=== PATIENT | female | born 1950 | race Caucasian/White ===

== ENCOUNTER 2020-09-05 10:39 | Emergency (ER) | payer MEDICARE ==
[~2020-09-05] VITALS: Ht 165.1 cm; Wt 81.8 kg
[2020-09-05 12:41] LABS: BILIRUBIN,URINE NEGATIVE (NEG); CLARITY,URINE CLEAR; COLOR,URINE YELLOW; NITRITE,URINE NEGATIVE (NEG); PROTEIN,URINE NEGATIVE (NEG-TRACE); UROBILINOGEN,URINE 0.2 mg/dL (0.2 mg/dL)
[2020-09-05 13:02] LABS: HYALINE CASTS, URINE OCCASIONAL /HPF
[2020-09-05 13:03] LABS: BACTERIA,URINE FEW /HPF (0-FEW); RBC,URINE 0 /HPF (0-2)
[2020-09-05 13:19] LABS: BASO % 0 % (0-3); EOS % 0 % (0-3); HEMATOCRIT 39.9 % (36.0-47.0); HEMOGLOBIN 13.3 g/dL (12.0-15.5); LYMPH # 0.8 x10^3/uL (1.0-4.8); LYMPH % 6 % (24-48); MEAN CORPUSCULAR HEMOGLOBIN 28 pg (25-35); MEAN CORPUSCULAR HGB CONC 33 g/dL (31-37); MEAN CORPUSCULAR VOLUME 85 fL (79-100); MONO # 0.4 x10^3/uL (0.0-1.1); MONO % 4 % (0-9); NEUT # 10.9 x10^3/uL (1.8-7.7); NEUT % 90 % (31-73); PLATELET COUNT 388 x10^3/uL (140-400); RED BLOOD COUNT 4.69 x10^6/uL (3.50-5.40); RED CELL DISTRIBUTION WIDTH 13.7 % (11.5-14.5); WHITE BLOOD COUNT 12.1 x10^3/uL (4.0-11.0)
[2020-09-05 13:28] LABS: CALCIUM 9.8 mg/dL (8.5-10.1); CREATININE 1.3 mg/dL (0.6-1.0); GFR 40.3; POTASSIUM 4.2 mmol/L (3.5-5.1)
[2020-09-05 13:34] LABS: ALBUMIN 3.2 g/dL (3.4-5.0); ALBUMIN/GLOBULIN RATIO 0.7 (1.0-1.7); TOTAL BILIRUBIN 0.4 mg/dL (0.2-1.0)
[2020-09-05 13:54] VITALS: BP 114/73
--- NOTE | 2020-09-05 14:22 | RAD ---
CT abdomen and pelvis without contrast 09/05/2020. Reason for exam: Pelvic pain. Helical noncontrast images were performed through the abdomen and pelvis. Exposure: One or more of th e following individualized dose reduction techniques were utilized for this examination: 1. Automate d exposure control 2. Adjustment of the mA and/or kV according to patient size 3. Use of iterative reconstruction technique. There are no available comparison studies. FINDINGS: The lung bases are clear. The liver shows some cysts. No significant liver parenchymal abno rmality is seen. The liver and spleen otherwise appear normal. Evaluation of the solid organs is limi felicita without IV contrast. The kidneys show no mass. There is moderate right-sided hydronephrosis witho ut apparent ureteral dilatation. This may be from congenital UPJ obstruction, although there is some perinephric edema on the right, not seen on the left. The adrenal glands are not enlarged. The pancre as appears normal. No retroperitoneal or mesenteric adenopathy is seen. There is no apparent abdomina l soft tissue mass or other inflammatory process. A normal appendix is seen arising from the cecum. T here is a fat-containing umbilical hernia and a small hiatal hernia at the lower mediastinum. Images through the pelvis show no abnormality of the distal ureters. The bladder has some indentation from the left but otherwise appears normal. No pelvic or inguinal adenopathy is seen. There is no se parate pelvic mass. There is fairly extensive diverticulosis of the sigmoid colon. There is wall thic kening of the colon was somewhat adjacent edema. No extraluminal fluid or gas collection is seen. IMPRESSION: Findings suggest acute diverticulitis of the sigmoid colon. No perforation, abscess or ot her complication is seen at this point. There is some right-sided hydronephrosis. This could be related to congenital UPJ obstruction, althou gh there seems to be some perinephric edema on the right, which would not typically be seen with a ch ronic process. However, no obstructing stone or mass is seen Electronically signed by: Mao Mackay Jr., MD (09/05/2020 2:19 PM) [id number]
--- NOTE | 2020-09-05 14:36 | ED.ADGEN ---
Past Medical History Past Medical History: Hypertension, Hypothyroid, Other Additional Past Medical Histor: PSORASIS, Seasonal allergies Past Surgical History: Hysterectomy Smoking Status: Never Smoker Alcohol Use: None General Adult EDM: Chief Complaint: PELVIC PAIN HPI: HPI: Patient is a 70 year old female, who presents emergency department with complaints of lower left quadrant, and left-sided pelvic for the last 2 weeks. She denies any dysuria, hematuria, increased urinary frequency, or difficulty voiding. Patient states for several months she is also felt like something is not right with her vagina. She states that she has a weak pelvic floor. She denies any bleeding or abnormal discharge from her vagina, she reports it feels like something wants to come out of her vagina. She reports that does not burn to PE however she feels increased pain in her pelvis when she urinates. She denies any fever, cough, sore throat, body aches, fatigue, chest pain, patient's, or weakness. She denies any nausea, vomiting, diarrhea, or recent constipation. Patient reports that she has had a 15 pound unintentional weight loss in the last 3 months, she reports a decreased appetite and thinks the weight loss is due to the lack of appetite. She currently rates her discomfort a 6 out of 10 on pain scale, she states that the pain is worse when she is sitting, pain decreases when she lies flat. Review of Systems: Review of Systems: Complete ROS is negative unless otherwise noted in HPI. Allergies: Allergies: Allergies Coded Allergies Type Severity Reaction Last Updated Verified Cephalosporins Allergy Intermediate Hives 09/05/20 Yes Penicillins Allergy Intermediate Hives 09/05/20 Yes Sulfa (Sulfonamide Antibiotics) Allergy Intermediate Hives 09/05/20 Yes Physical Exam: PE: See Above Constitutional: Well developed, well nourished, no acute distress, non-toxic appearance. [] HENT: Normocephalic, atraumatic, bilateral external ears normal, nose normal. [] Eyes: PERRLA, EOMI, conjunctiva normal, no discharge. [] Neck: Normal range of motion, no stridor. [] Cardiovascular:Heart rate regular rhythm Lungs & Thorax: Respirations even and unlabored, no retractions, no respiratory distress Abdomen: soft, lower left quadrant tenderness to palpation, no rebound tenderness, no guarding, no palpable mass Female : Bulging tissue present in the vaginal apex at the posterior wall of the vaginal canal, concerning for rectal prolapse, no bleeding Skin: Warm, dry, no erythema, no rash. [] Extremities: No cyanosis, ROM intact, no edema. [] Neurologic: Alert and oriented X 3, no focal deficits noted. [] Psychologic: Affect normal, judgement normal, mood normal. [] Current Patient Data: Labs: Laboratory Tests Test 09/05/20 12:25 09/05/20 13:05 Urine Collection Type Unknown Urine Color Yellow Urine Clarity Clear Urine pH 6.0 (<5.0-8.0) Urine Specific [place] 1.010 (1.000-1.030) Urine Protein Negative mg/dL (NEG-TRACE) Urine Glucose (UA) Negative mg/dL (NEG) Urine Ketones (Stick) Negative mg/dL (NEG) Urine Blood Negative (NEG) Urine Nitrite Negative (NEG) Urine Bilirubin Negative (NEG) Urine Urobilinogen Dipstick 0.2 mg/dL (0.2 mg/dL) Urine Leukocyte Esterase Trace (NEG) Urine RBC 0 /HPF (0-2) Urine WBC 1-4 /HPF (0-4) Urine Squamous Epithelial Cells Occ /LPF Urine Transitional Epithelial Cells Occ /LPF Urine Bacteria Few /HPF (0-FEW) Urine Hyaline Casts Occasional /HPF White Blood Count 12.1 x10^3/uL (4.0-11.0) H Red Blood Count 4.69 x10^6/uL (3.50-5.40) Hemoglobin 13.3 g/dL (12.0-15.5) Hematocrit 39.9 % (36.0-47.0) Mean Corpuscular Volume 85 fL (79-100) Mean Corpuscular Hemoglobin 28 pg (25-35) Mean Corpuscular Hemoglobin Concent 33 g/dL (31-37) Red Cell Distribution Width 13.7 % (11.5-14.5) Platelet Count 388 x10^3/uL (140-400) Neutrophils (%) (Auto) 90 % (31-73) H Lymphocytes (%) (Auto) 6 % (24-48) L Monocytes (%) (Auto) 4 % (0-9) Eosinophils (%) (Auto) 0 % (0-3) Basophils (%) (Auto) 0 % (0-3) Neutrophils # (Auto) 10.9 x10^3/uL (1.8-7.7) H Lymphocytes # (Auto) 0.8 x10^3/uL (1.0-4.8) L Monocytes # (Auto) 0.4 x10^3/uL (0.0-1.1) Eosinophils # (Auto) 0.0 x10^3/uL (0.0-0.7) Basophils # (Auto) 0.0 x10^3/uL (0.0-0.2) Segmented Neutrophils % 88 % (35-66) H Lymphocytes % 11 % (24-48) L Monocytes % 1 % (0-10) Platelet Estimate Adequate (ADEQUATE) Sodium Level 140 mmol/L (136-145) Potassium Level 4.2 mmol/L (3.5-5.1) Chloride Level 104 mmol/L (98-107) Carbon Dioxide Level 23 mmol/L (21-32) Anion Gap 13 (6-14) Blood Urea Nitrogen 17 mg/dL (7-20) Creatinine 1.3 mg/dL (0.6-1.0) H Estimated GFR (Cockcroft-Gault) 40.3 BUN/Creatinine Ratio 13 (6-20) Glucose Level 111 mg/dL (70-99) H Calcium Level 9.8 mg/dL (8.5-10.1) Total Bilirubin 0.4 mg/dL (0.2-1.0) Aspartate Amino Transferase (AST) 17 U/L (15-37) Alanine Aminotransferase (ALT) 20 U/L (14-59) Alkaline Phosphatase 80 U/L (46-116) Total Protein 8.0 g/dL (6.4-8.2) Albumin 3.2 g/dL (3.4-5.0) L Albumin/Globulin Ratio 0.7 (1.0-1.7) L Laboratory Tests 09/05/20 13:05 Laboratory Tests 09/05/20 13:05 Vital Signs: Vital Signs Date Time Temp Pulse Resp B/P (MAP) Pulse Ox O2 Delivery O2 Flow Rate FiO2 09/05/20 13:54 78 96 09/05/20 12:15 98.6 15 136/83 (100) Room Air 98.6 EKG: EKG: [] Heart Score: Risk Factors: Risk Factors: DM, Current or recent (<one month) smoker, HTN, HLP, family history of CAD, obesity. Risk Scores: Score 0 - 3: 2.5% MACE over next 6 weeks - Discharge Home Score 4 - 6: 20.3% MACE over next 6 weeks - Admit for Clinical Observation Score 7 - 10: 72.7% MACE over next 6 weeks - Early Invasive Strategies Radiology/Procedures: Radiology/Procedures: PROCEDURE: CT ABDOMEN PELVIS WO CONTRAST CT abdomen and pelvis without contrast 09/05/2020. Reason for exam: Pelvic pain. Helical noncontrast images were performed through the abdomen and pelvis. Exposure: One or more of the following individualized dose reduction techniques were utilized for this examination: 1. Automated exposure control 2. Adjustment of the mA and/or kV according to patient size 3. Use of iterative reconstruction technique. There are no available comparison studies. FINDINGS: The lung bases are clear. The liver shows some cysts. No significant liver parenchymal abnormality is seen. The liver and spleen otherwise appear normal. Evaluation of the solid organs is limited without IV contrast. The kidneys show no mass. There is moderate right-sided hydronephrosis without apparent ureteral dilatation. This may be from congenital UPJ obstruction, although there is some perinephric edema on the right, not seen on the left. The adrenal glands are not enlarged. The pancreas appears normal. No retroperitoneal or mesenteric adenopathy is seen. There is no apparent abdominal soft tissue mass or other inflammatory process. A normal appendix is seen arising from the cecum. There is a fat-containing umbilical hernia and a small hiatal hernia at the lower mediastinum. Images through the pelvis show no abnormality of the distal ureters. The bladder has some indentation from the left but otherwise appears normal. No pelvic or inguinal adenopathy is seen. There is no separate pelvic mass. There is fairly extensive diverticulosis of the sigmoid colon. There is wall thickening of the colon was somewhat adjacent edema. No extraluminal fluid or gas collection is seen. IMPRESSION: Findings suggest acute diverticulitis of the sigmoid colon. No perforation, abscess or other complication is seen at this point. There is some right-sided hydronephrosis. This could be related to congenital UPJ obstruction, although there seems to be some perinephric edema on the right, which would not typically be seen with a chronic process. However, no obstructing stone or mass is seen Electronically signed by: Mao Mackay Jr., MD (09/05/2020 2:19 PM) [id number] [] Course & Med Decision Making: Course & Med Decision Making Pertinent Labs and Imaging studies reviewed. (See chart for details) [] Dori Disclaimer: Dori Disclaimer: This electronic medical record was generated, in whole or in part, using a voice recognition dictation system. Departure Departure Impression: Primary Impression: Acute diverticulitis Additional Impression: Partial rectal prolapse Disposition: ADMITTED INPT THIS HOSP Admitting Physician: BRYANT Salamanca) Condition: STABLE Referrals: MERLIN LEAHY MD Patient Instructions: Diverticulitis, [id number], Prolapse Additional Instructions: Fill the prescriptions, use them as directed. Recommend clear liquid diet for the next [address] Leahy for further evaluation of the possible rectal prolapse. Recommend that you follow-up with your primary care, Dr. Diaz next week, call Monday for an appointment. Return to the ER if symptoms worsen or you develop a fever. Scripts Hydrocodone Bit/Acetaminophen (HYDROCODONE-APAP 5-325 ) 1 Tab Tablet 0.5-1 TAB PO PRN Q6HRS PRN for SEVERE PAIN 7-10 for 5 Days, #10 TAB 0 Refills Prov: ALBERTO HANNA ENGINEERING ASSOCIATE 09/05/20 Metronidazole (FLAGYL) 500 Mg Tablet 500 MG PO TID for 10 Days, #30 TAB 0 Refills Prov: ALBERTO HANNA ENGINEERING ASSOCIATE 09/05/20 Ciprofloxacin Hcl (CIPRO) 500 Mg Tablet 1 TAB PO BID for 10 Days, #20 TAB 0 Refills Prov: ALBERTO HANNA ENGINEERING ASSOCIATE 09/05/20 Problem Qualifiers ALBERTO HANNA ENGINEERING ASSOCIATE Sep 05, 2020 14:36
[2020-09-05 14:43] LABS: % LYMPHS 11 % (24-48); % MONOS 1 % (0-10); % SEGS 88 % (35-66); PLT ESTIMATE ADEQUATE (ADEQUATE)
[2020-09-05] MEDS ORDERED: METR500T PO (15:37)
[2020-09-05] MEDS ORDERED: HYDR-2761 PO (15:37)
[2020-09-05] MEDS ORDERED: CIPR500T94 PO (15:37)
[2020-10-29] MEDS ORDERED: LACT1CAP21 PO (16:36)
[2020-10-29] MEDS ORDERED: vitamin d3 PO (16:36)
[2020-10-29] MEDS ORDERED: LEVO125T5 PO (16:36)
[2020-10-29] MEDS ORDERED: FLUT9.9S NS (16:36)
[2020-11-06] MEDS ORDERED: ERTA1VIA16 IJ (13:11)
[2020-11-06] MEDS ORDERED: PANT40TA77 PO (13:11)
== END 2020-09-05 16:38 | disposition home or self-care (01) ==
LOC: ER 10:39
DX: K57.92 Diverticulitis of intestine, part unspecified, without perforation or abscess without bleeding (principal); K62.3 Rectal prolapse; I10 Essential (primary) hypertension; E03.9 Hypothyroidism, unspecified; Z90.710 Acquired absence of both cervix and uterus; Z88.0 Allergy status to penicillin; Z88.1 Allergy status to other antibiotic agents; Z88.2 Allergy status to sulfonamides
CPT/HCPCS: 36415; 74176; 80053; 81001; 85007; 85025; 87086; 99284-25; 99285-25

== ENCOUNTER 2020-11-17 19:00 | Emergency (ER) | payer MEDICARE ==
[~2020-11-17] VITALS: Ht 165.1 cm; Wt 75.1 kg
[~2020-11-17 19:00] MED LIST: CIPR500T94 PO; ERTA1VIA16 IJ; FLUT9.9S NS; HYDR-2761 PO; LACT1CAP21 PO; LEVO125T5 PO; METR500T PO; PANT40TA77 PO; vitamin d3 PO
[2020-11-17] MEDS ORDERED: IV NORMAL SALINE 1000ML BAG 1,000 ML IV SCH (20:00)
--- NOTE | 2020-11-17 20:30 | RAD ---
Exam: CT head, maxillofacial and cervical spine INDICATION: Fall, puncture wound to forehead TECHNIQUE: Sequential axial images through the head, maxillofacial and cervical spine were obtained w ithout the administration of IV contrast. Comparisons: None FINDINGS: Head: No focal parenchymal lesion or hemorrhage is identified. There is no midline shift or sulcal effaceme nt. No acute vascular territory infarction is identified. Luque-white distinction is preserved. The ventricular system is within normal limits without compression hydrocephalus. The basal cisterns are well maintained. Face: Soft tissue air noted in the subcutaneous tissues overlying the midline frontal region extending down to the bridge of the nose. The visualized portions of the paranasal sinuses and mastoid air cells ar e well-pneumatized. No acute fractures. Globes and intraorbital contents are normal. Cervical spine: Straightening of cervical spine which may positional. Vertebral body heights are well-maintained. Fracture to the cervical spine is not identified. Mild spondylotic change in cervical spine. With degenerative disease greatest at C6-C7. Visualized paraspinal soft tissues are unremarkable. IMPRESSION: 1. No acute intracranial abnormality. 2. Soft tissue air noted in the subcutaneous tissues overlying the midline frontal region extending down compared to the nose. No underlying osseous abnormality. 3. Negative CT C-spine for acute traumatic injury. Exposure: One or more of the following in the visualized dose reduction techniques were utilized for this examination: 1. Automated exposure control 2. Adjustment of the MA and/or KV according to patient size Use of iterative of reconstructive technique Electronically signed by: Aleksandra Cruz MD (11/17/2020 8:28 PM) [facility]
[2020-11-17 20:34] LABS: CALCIUM 8.5 mg/dL (8.5-10.1); CREATININE 1.2 mg/dL (0.6-1.0); GFR 44.2; POTASSIUM 3.5 mmol/L (3.5-5.1)
--- NOTE | 2020-11-17 20:36 | EKG ---
[facility] [address] [place] [address] Test Date: 2020-11-17 Test Time: 20:27:44 Pat Name: CRYSTAL CAVANAUGH Department: Room: Gender: F Diesel Fitter Mechanic: : 1950 Requested By: BLAYNE VELARDE Order Number: [id number] Reading MD: Measurements Intervals [facility] [place] Rate: 90 P: 50 VT: 142 QRS: 13 QRSD: 80 T: 41 QT: 348 QTc: 430 Interpretive Statements CRYSTAL ROJAS
[2020-11-17 20:39] LABS: ALBUMIN 3.1 g/dL (3.4-5.0); ALBUMIN/GLOBULIN RATIO 0.8 (1.0-1.7); TOTAL BILIRUBIN 0.4 mg/dL (0.2-1.0); TOTAL PROTEIN 6.8 g/dL (6.4-8.2)
[2020-11-17] MEDS ORDERED: MORPHINE SULFATE 4 MG/ML VIAL. IV ONE (20:45)
[2020-11-17] MEDS ORDERED: ONDANSETRON PF 4 MG/2 ML VIAL. IVP ONE (20:45)
[2020-11-17 20:59] LABS: BASO % 0 % (0-3); EOS # 0.1 x10^3/uL (0.0-0.7); EOS % 2 % (0-3); HEMATOCRIT 37.1 % (36.0-47.0); HEMOGLOBIN 12.3 g/dL (12.0-15.5); LYMPH # 1.1 x10^3/uL (1.0-4.8); LYMPH % 14 % (24-48); MEAN CORPUSCULAR HEMOGLOBIN 29 pg (25-35); MEAN CORPUSCULAR HGB CONC 33 g/dL (31-37); MEAN CORPUSCULAR VOLUME 86 fL (79-100); MONO # 0.7 x10^3/uL (0.0-1.1); MONO % 9 % (0-9); NEUT # 6.1 x10^3/uL (1.8-7.7); NEUT % 76 % (31-73); PLATELET COUNT 244 x10^3/uL (140-400); RED BLOOD COUNT 4.32 x10^6/uL (3.50-5.40); RED CELL DISTRIBUTION WIDTH 15.5 % (11.5-14.5); WHITE BLOOD COUNT 8.1 x10^3/uL (4.0-11.0)
[2020-11-17 21:07] LABS: PROTHROMBIN TIME PATIENT 14.1 SEC (11.7-14.0)
--- NOTE | 2020-11-17 21:08 | PHYS DOC ---
Past Medical History Past Medical History: Hypertension, Hypothyroid, Other Additional Past Medical Histor: PSORASIS, Seasonal allergies Past Surgical History: Hysterectomy Smoking Status: Never Smoker Alcohol Use: None General Adult EDM: Chief Complaint: TRAUMA ALERT HPI: HPI: 70-year-old female past medical history of hypertension, hypothyroidism with recent admission to the hospital for persistent diverticulitis after failed outpatient antibiotics, presents to the ED with her biological daughter, complaining of forehead pain after patient was leaning over to her left side, lost balance and fell off the couch hitting radio antenna on her side table. States she had to remove it the antenna. Unsure if tetanus is up-to-date. Before this has IV abx at clinic. Review of Systems: Review of Systems: Constitutional: Denies fever or chills. [] Eyes: Denies change in visual acuity. [] HENT: Denies nasal congestion or sore throat. [] Respiratory: Denies cough or shortness of breath. [] Cardiovascular: Denies chest pain or edema. [] GI: Denies abdominal pain, nausea, vomiting, bloody stools or diarrhea. [] : Denies dysuria. [] Musculoskeletal: Denies back pain or joint pain. [] Integument: Denies rash. [] Neurologic: Denies headache, neck pain, focal weakness or sensory changes. [] Endocrine: Denies polyuria or polydipsia. [] Lymphatic: Denies swollen glands. [] Psychiatric: Denies depression or anxiety. [] Heart Score: C/O Chest Pain: No Risk Factors: Risk Factors: DM, Current or recent (<one month) smoker, HTN, HLP, family history of CAD, obesity. Risk Scores: Score 0 - 3: 2.5% MACE over next 6 weeks - Discharge Home Score 4 - 6: 20.3% MACE over next 6 weeks - Admit for Clinical Observation Score 7 - 10: 72.7% MACE over next 6 weeks - Early Invasive Strategies Current Medications: Current Medications Medications (Trade) Dose Ordered Sig/Melisa Start Time Stop Time Status Last Admin Dose Admin Morphine Sulfate (Morphine Sulfate) 4 mg 1X ONCE 11/17/20 20:45 11/17/20 20:46 DC Ondansetron HCl (Zofran) 4 mg 1X ONCE 11/17/20 20:45 11/17/20 20:46 DC Sodium Chloride 1,000 ml @ 1,000 mls/hr Q1H 11/17/20 20:00 11/17/20 20:59 DC Allergies: Allergies: Allergies Coded Allergies Type Severity Reaction Last Updated Verified Cephalosporins Allergy Intermediate Hives 11/17/20 Yes Penicillins Allergy Intermediate Hives 11/17/20 Yes Sulfa (Sulfonamide Antibiotics) Allergy Intermediate Hives 11/17/20 Yes Physical Exam: PE: Constitutional: Well developed, well nourished, no acute distress, non-toxic appearance. HENT: Normocephalic, atraumatic, dried blood around nasal bridge, no septal hematoma, no hemotympanum, no martinez sign, glabella with 3-4mm jagged closed abrasion/no active bleeding Eyes: PERRLA, EOMI, reports bilateral cataracts, conjunctiva normal, no discharge, right lower eyelid ecchymosis near medial canthus w/ tarsal plate sparing Neck: Normal range of motion, supple, Cardiovascular: S1/2 present, regular rhythm Lungs & Thorax: Speaking in full sentences, bilateral equal chest rise, no tachypnea or increased work of breathing Abdomen: soft, no tenderness, no rigidity or guarding Skin: Warm, dry, superficial abrasion over left anterior shoulder-shoulder with full range of motion Back: No midline spinal tenderness or step-offs, no CVA tenderness. [] Extremities: No tenderness, no cyanosis, no lower extremity edema Neurologic: Alert and oriented X 3, normal motor function, normal sensory function, no focal deficits noted. [] Psychologic: Affect normal, judgement normal, mood normal. [] Nexus C-spine criteria are negative: There is no post midline tenderness, the patient is not intoxicated, there is a normal level of alertness, there are no focal neurologic deficits and there are no distracting injuries. Current Patient Data: Labs: Laboratory Tests Test 11/17/20 20:00 11/17/20 20:47 Sodium Level 139 mmol/L (136-145) Potassium Level 3.5 mmol/L (3.5-5.1) Chloride Level 103 mmol/L (98-107) Carbon Dioxide Level 26 mmol/L (21-32) Anion Gap 10 (6-14) Blood Urea Nitrogen 15 mg/dL (7-20) Creatinine 1.2 mg/dL (0.6-1.0) H Estimated GFR (Cockcroft-Gault) 44.2 BUN/Creatinine Ratio 13 (6-20) Glucose Level 163 mg/dL (70-99) H Calcium Level 8.5 mg/dL (8.5-10.1) Total Bilirubin 0.4 mg/dL (0.2-1.0) Aspartate Amino Transferase (AST) 209 U/L (15-37) H Alanine Aminotransferase (ALT) 390 U/L (14-59) H Alkaline Phosphatase 88 U/L (46-116) Total Protein 6.8 g/dL (6.4-8.2) Albumin 3.1 g/dL (3.4-5.0) L Albumin/Globulin Ratio 0.8 (1.0-1.7) L Ethyl Alcohol Level < 10 mg/dL (0-10) White Blood Count 8.1 x10^3/uL (4.0-11.0) Red Blood Count 4.32 x10^6/uL (3.50-5.40) Hemoglobin 12.3 g/dL (12.0-15.5) Hematocrit 37.1 % (36.0-47.0) Mean Corpuscular Volume 86 fL (79-100) Mean Corpuscular Hemoglobin 29 pg (25-35) Mean Corpuscular Hemoglobin Concent 33 g/dL (31-37) Red Cell Distribution Width 15.5 % (11.5-14.5) H Platelet Count 244 x10^3/uL (140-400) Neutrophils (%) (Auto) 76 % (31-73) H Lymphocytes (%) (Auto) 14 % (24-48) L Monocytes (%) (Auto) 9 % (0-9) Eosinophils (%) (Auto) 2 % (0-3) Basophils (%) (Auto) 0 % (0-3) Neutrophils # (Auto) 6.1 x10^3/uL (1.8-7.7) Lymphocytes # (Auto) 1.1 x10^3/uL (1.0-4.8) Monocytes # (Auto) 0.7 x10^3/uL (0.0-1.1) Eosinophils # (Auto) 0.1 x10^3/uL (0.0-0.7) Basophils # (Auto) 0.0 x10^3/uL (0.0-0.2) Laboratory Tests 11/17/20 20:47 Laboratory Tests 11/17/20 20:00 Vital Signs: Vital Signs Date Time Temp Pulse Resp B/P (MAP) Pulse Ox O2 Delivery O2 Flow Rate FiO2 11/17/20 19:30 98.2 96 20 151/86 (107) 97 Room Air 98.2 EKG: EK Sinus rhythm 84 bpm, no axis deviation, normal intervals, no T wave inversions, no ST elevations or ST depressions, PACs present, no active chest pain 2026 EKG sinus rhythm 90 bpm, no axis deviation, normal intervals, no T wave inversions, no ST elevations or ST depressions, no active chest pain per rn-new policy that traumas get 2 ekgs Radiology/Procedures: Radiology/Procedures: []IMAGING REPORT Signed PATIENT: CRYSTAL CAVANAUGH ACCOUNT: [id number] : 1950 LOCATION: ER AGE: 70 SEX: F EXAM STATUS: REG ER ORD. PHYSICIAN: BLAYNE VELARDE DO REASON: fall, puncture wound to forehead/tv antenna PROCEDURE: CT HEAD AND CERVICAL SPINE WO Exam: CT head, maxillofacial and cervical spine INDICATION: Fall, puncture wound to forehead TECHNIQUE: Sequential axial images through the head, maxillofacial and cervical spine were obtained without the administration of IV contrast. Comparisons: None FINDINGS: Head: No focal parenchymal lesion or hemorrhage is identified. There is no midline shift or sulcal effacement. No acute vascular territory infarction is identified. Luque-white distinction is preserved. The ventricular system is within normal limits without compression hydro cephalus. The basal cisterns are well maintained. Face: Soft tissue air noted in the subcutaneous tissues overlying the midline frontal region extending down to the bridge of the nose. The visualized portions of the paranasal sinuses and mastoid air cells are well-pneumatized. No acute fractures. Globes and intraorbital contents are normal. Cervical spine: Straightening of cervical spine which may positional. Vertebral body heights are well-maintained. Fracture to the cervical spine is not identified. Mild spondylotic change in cervical spine. With degenerative disease greatest at C6-C7. Visualized paraspinal soft tissues are unremarkable. IMPRESSION: 1. No acute intracranial abnormality. 2. Soft tissue air noted in the subcutaneous tissues overlying the midline frontal region extending down compared to the nose. No underlying osseous abnormality. 3. Negative CT C-spine for acute traumatic injury. Exposure: One or more of the following in the visualized dose reduction techniq ues were utilized for this examination: 1. Automated exposure control 2. Adjustment of the MA and/or KV according to patient size Use of iterative of reconstructive technique Electronically signed by: Aleksandra Lechuga MD (11/17/2020 8:28 PM) [facility] DICTATED and SIGNED BY: ALEKSANDRA LECHUGA MD DATE: 11/17/[id number] 0 IMAGING REPORT Signed PATIENT: CRYSTAL CAVANAUGH ACCOUNT: [id number] : 1950 LOCATION: ER AGE: 70 SEX: F EXAM STATUS: REG ER ORD. PHYSICIAN: BLAYNE VELARDE DO REASON: fall PROCEDURE: PORTABLE CHEST 1V Exam: Chest one view INDICATION: Fall TECHNIQUE: Frontal view of the Comparisons: None FINDINGS: Right-sided PICC with tip at the SVC. The cardiomediastinal silhouette and pulmonary vessels are within normal limits. The lung and pleural spaces are clear. IMPRESSION: No acute cardiopulmonary process. Electronically signed by: Aleksandra Lechuga MD (11/17/2020 9:40 PM) [facility] DICTATED and SIGNED BY: ALEKSANDRA LECHUGA MD DATE: 11/17/[id number] 0 Course & Med Decision Making: Course & Med Decision Making Pertinent Labs and Imaging studies reviewed. (See chart for details) Concern for glabella abrasion, tdap updated with labs showing gradually elevated liver enzymes with acute kidney injury and urinary tract infection. D/w Dr. Sanjay staples who had recently seen pt in clinic. Pt with very supportive daughter who will assist in transfer home. Will discharge home with strict ED return precautions were given for repeat head trauma, confusion, neurologic deficits, and persistent nausea or vomiting. Encouraged urgent outpatient follow-up with PMD for repeat LFTs and U/A. Life-threatening processes were considered but are low suspicion at this time, given history, physical exam and ED workup. Pt was educated on all prescription medications and adverse effects. All patient's questions were answered and pt was stable at time of discharge. Life/limb-threatening differential includes but is not limited to, intracranial hemorrhage, diffuse axonal injury, spinal cord syndrome, unstable cervical fracture or SCIWORA, fractures or joint dislocations, neurovascular injuries, organ injury or laceration, pneumothorax, pneumoperitoneum, pericardial tamponade, unstable pelvic fracture, compartment syndrome, flail chest or respiratory distress, burn injury or asphyxiation I spoken with the patient and her caregivers. I explained the patient's condition, diagnoses and treatment plan based on the information available to me at this time. I have answered the patient and her caregiver's questions and addressed any concerns. The patient and her caregivers have a good understanding of patient's diagnosis, condition and treatment plan as can be expected at this point. Vital signs have been stable. Patient's condition is stable and appropriate for discharge from the emergency department. Patient will pursue further outpatient evaluation with primary care physician or other designated or consulting physician as outlined in the discharge instructions. The patient and/or caregivers are agreeable to this plan of care and follow-up instructions have been explained in detail. The patient and/or caregivers have received these instructions in written form and have expressed an understanding of the discharge instructions. The patient and/or caregivers are aware that any significant change of condition or worsening of symptoms should prompt immediate return to this or the closest emergency department or call to 911. Dori Disclaimer: Dori Disclaimer: This electronic medical record was generated, in whole or in part, using a voice recognition dictation system. Departure Departure Impression: Primary Impression: Facial abrasion Additional Impressions: Need for Tdap vaccination RAMONA (acute kidney injury) Elevated liver enzymes UTI (urinary tract infection) Disposition: 01 DC HOME SELF CARE/HOMELESS Condition: STABLE Referrals: ASHWIN BANEGAS DO (PCP) for re-evaluation in 48 hours of increased liver enzymes and acute kidney injury, repeat urinalysis in 2 weeks Patient Instructions: Abrasions, Head Injury, Adult, Urinary Tract Infection, VIS, Tetanus, Diphtheria (Td); Tetanus, Diphtheria, Pertussis (Tdap) - CDC Additional Instructions: EMERGENCY DEPARTMENT GENERAL DISCHARGE INSTRUCTIONS Thank you for coming to [facility] Emergency Department (ED) today and trusting us with you care. We trust that you had a positive experience in our Emergency Department. If you wish to speak to the department management, you may call the Director at [phone]. YOUR FOLLOW UP INSTRUCTIONS ARE FOLLOWS: 1. Do you have a private Doctor? If you do not have a private doctor, please ask for a resource list of physicians or clinics that may be able to assist you with follow up care. 2. The Emergency Physicain has interpreted your x-rays. The X-Ray specialist will also review them. If there is a change in the findings, you will be notified in 48 hours when at all possible. 3. A lab test or culture has been done, your results will be reviewed and you will be notified if you need a change in treatment. ADDITIONAL INSTRUCTIONS AND INFORMATION: 1. Your care today has been supervised by a physician who is specially trained in emergency care. Many problems require more than one evaluation for a complete diagnosis and treatment. We recommend that you schedule your follow up appointment as recommended to ensure complete treatment of you illness or injury. If you are unable to obtain follow up care and continue to have a problem, or if your condition worsens, we recommend that you return to the ED. 2. We are not able to safely determine your condition over the phone nor are we able to give sound medical advice over the phone. For these safety reasons, if you call for medical advice we will ask you to come to the ED for further evaluation. 3. If you have any questions regarding these discharge instructions please call the ED at [phone]. SAFETY INFORMATION: In the interest of safety, wellness, and injury prevention; we encourage you to wear your sealbelt, if you smoke; quite smoking, and we encourage family to use a protective helmet for bicycling and other sporting events that present an increased risk for head injury. IF YOUR SYMPTOMS WORSEN OR NEW SYMPTOMS DEVELOP, OR YOU HAVE CONCERNS ABOUT YOUR CONDITION; OR IF YOUR CONDITION WORSENS WHILE YOU ARE WAITING FOR YOUR FOLLOW UP A PPOINTMENT; EITHER CONTACT YOUR PRIMARY CARE DOCTOR, THE PHYSICIAN WHOSE NAME AND NUMBER YOU WERE [facility], OR RETURN TO THE ED IMMEDIATELY. Scripts Nitrofurantoin Monohyd/M-Cryst (MACROBID 100 MG CAPSULE) 100 Mg Capsule 1 CAP PO BID for 10 Days, #20 CAP 0 Refills Prov: BLAYNE VELARDE DO 11/18/20 BLAYNE VELARDE DO Nov 17, 2020 21:08
[2020-11-17] MEDS ORDERED: DIPH,PERTUSS(ACELL),TET VAC/PF 0.5 ML SYRINGE. VAX IM ONE (21:30)
--- NOTE | 2020-11-17 21:43 | RAD ---
Exam: Chest one view INDICATION: Fall TECHNIQUE: Frontal view of the Comparisons: None FINDINGS: Right-sided PICC with tip at the SVC. The cardiomediastinal silhouette and pulmonary vessels are within normal limits. The lung and pleural spaces are clear. IMPRESSION: No acute cardiopulmonary process. Electronically signed by: Aleksandra Cruz MD (11/17/2020 9:40 PM) MANJIT
[2020-11-18] LABS: BILIRUBIN,URINE NEGATIVE (NEG); CLARITY,URINE CLEAR; COLOR,URINE YELLOW; NITRITE,URINE NEGATIVE (NEG); PROTEIN,URINE NEGATIVE (NEG-TRACE); UROBILINOGEN,URINE 0.2 mg/dL (0.2 mg/dL)
[2020-11-18 00:06] LABS: BARBITURATES NEG (NEG); BENZODIAZEPINES NEG (NEG); CANNABINOIDS NEG (NEG); COCAINE NEG (NEG); METHADONE NEG (NEG); OPIATES POS (NEG); PHENCYCLIDINE NEG (NEG)
[2020-11-18 00:07] LABS: BACTERIA,URINE 0 /HPF (0-FEW); RBC,URINE 0 /HPF (0-2)
[2020-11-18 00:09] LABS: AMPHETAMINE/METHAMPHETAMINE NEG (NEG)
[2020-11-18] MEDS ORDERED: DIPH,PERTUSS(ACELL),TET VAC/PF 0.5 ML SYRINGE. VAX IM ONE (01:45)
[2020-11-18] MEDS ORDERED: NITR100C62 PO (01:50)
[2020-11-18 02:11] VITALS: BP 121/75
== END 2020-11-18 02:11 | disposition home or self-care (01) ==
LOC: ER 19:00
DX: S00.81XA Abrasion of other part of head, initial encounter (principal); N17.9 Acute kidney failure, unspecified; R74.8 Abnormal levels of other serum enzymes; N39.0 Urinary tract infection, site not specified; I10 Essential (primary) hypertension; E03.9 Hypothyroidism, unspecified; Z79.899 Other long term (current) drug therapy; Z90.710 Acquired absence of both cervix and uterus; Z88.0 Allergy status to penicillin; Z88.1 Allergy status to other antibiotic agents; Z88.2 Allergy status to sulfonamides; W08.XXXA Fall from other furniture, initial encounter; Y93.89 Activity, other specified; Y92.89 Other specified places as the place of occurrence of the external cause; Y99.8 Other external cause status
CPT/HCPCS: 36415; 70450; 70486; 71045; 72125; 80053; 80307; 81001; 85025; 85610; 85730; 87086; 90471; 90715; 93005; 96361; 96374; 96375; 99285; G0480; J2270; J2405; J7030

== ENCOUNTER → 2021-03-01 | Outpatient (CLI) | payer MEDICARE ==
[2020-11-23 09:20] VITALS: BP 140/77
[~2021-03-01] MED LIST changes: +BARIUM SULFATE 105% 1,900 ML SUSP RC ONE; +NITR100C62 PO
--- NOTE | 2021-03-01 12:20 | RAD ---
EXAMINATION: DG BARIUM ENEMA 03/01/2021 10:36 AM HISTORY: Diverticulitis, ileostomy, barium enema prior to takedown COMPARISON: CT abdomen pelvis 12/10/2020 TECHNIQUE: A campus supervisor image was acquired. A rectal tube was gently inserted and balloon inflated to secu re the tube. Barium contrast was administered via the rectal tube and multiple fluoroscopic images we re obtained. FINDINGS: Contrast reaches the cecum and refluxes into the terminal ileum. The sigmoid colon never fully disten ds during the exam but there is no focal stenosis or evidence of leak. There are a few colonic divert icula noted. Total fluoroscopic time:1.8 minutes. IMPRESSION: No evidence of leak. The sigmoid colon does not fully distend during the exam but there i s no focal stenosis or evidence of leak. Electronically signed by: Meka De Santiago MD (03/01/2021 12:17 PM) [id number]
== END ==
LOC: RAD 11:35
PROVIDERS: ATTEND Surgery
DX: K57.30 Diverticulosis of large intestine without perforation or abscess without bleeding (principal)
CPT/HCPCS: 74270